=== PATIENT | male | born 1955 | race Caucasian/White ===

== ENCOUNTER → 2020-03-29 10:18 | Outpatient (BNVA) | payer MEDICAID, SELFPAY | PROVIDERS: PCP Emergency Medicine; Referring Provider Emergency Medicine; Visit Provider Internal Medicine Endocrinology, Diabetes & Metabolism | DX: E11.21 Type 2 diabetes mellitus with diabetic nephropathy (principal); Z79.4 Long term (current) use of insulin; I10 Essential (primary) hypertension; E78.5 Hyperlipidemia, unspecified; E66.9 Obesity, unspecified | CPT/HCPCS: 99212 ==

== ENCOUNTER → 2020-05-01 12:43 | Outpatient (BNV) | payer MEDICAID, MEDICARE, OTHER, SELFPAY | PROVIDERS: PCP Emergency Medicine; Referring Provider Emergency Medicine; Visit Provider Internal Medicine Medical Oncology | DX: D69.6 Thrombocytopenia, unspecified (principal) | CPT/HCPCS: 99212; 99213; 99214 ==

== ENCOUNTER 2020-05-28 11:59 | Outpatient (REF) | payer MEDICAID, SELFPAY ==
--- NOTE | 2020-05-28 | MR_ITS ---
EXAMINATION: MR LUMBAR SPINE WITHOUT CONTRAST CLINICAL INFORMATION: Lumbago with sciatica. Right-sided paresthesia of skin. COMPARISON: None TECHNIQUE: MRI of the lumbar spine was obtained using routine sequences without contrast. FINDINGS: The lumbar vertebral bodies maintain normal heights. There is minimal retrolisthesis of L4 on L5. No moderate or severe disc height loss is seen. The distal spinal cord appears normal. The conus medullaris terminates normally at the L1 level. There is a subcentimeter right-sided T2 hyperintense renal cysts. SPINAL LEVELS: L1-L2: No posterior disc abnormality. No spinal canal or neural foraminal stenosis. L2-L3: No posterior disc abnormality. No spinal canal or neural foraminal stenosis. L3-L4: Minimal disc bulging causing encroachment on the right neural foramen. No spinal canal stenosis. L4-L5: Disc bulging with mild to moderate facet arthropathy. Mild flattening of the ventral thecal sac. Right foraminal protrusion contacts the exiting right L4 nerve root. Left neural foramen is mildly narrowed. L5-S1: Mild disc bulging. Severe facet arthropathy. Periarticular edema is seen about the right more than left facet. No significant narrowing of the spinal canal or neural foramina. MR/MR lumbar spine wo con IMPRESSION: No significant narrowing of the spinal canal. At L4-L5 there is right foraminal protrusion seen contacting the exiting right L4 nerve root. At L5-S1 there is severe facet arthropathy and periarticular edema about the right more than left facet.
== END 2020-05-28 12:00 | disposition home or self-care (01) ==
LOC: HO.MRI 11:59
PROVIDERS: Visit Provider Nurse Practitioner Family
DX: M54.41 Lumbago with sciatica, right side (principal); R20.2 Paresthesia of skin; R32 Unspecified urinary incontinence
CPT/HCPCS: 72148

== ENCOUNTER → 2020-06-25 13:40 | Outpatient (BNVA) | payer MEDICAID, SELFPAY | PROVIDERS: PCP Nurse Practitioner Primary Care; Visit Provider Physician Assistant | DX: S83.241D Other tear of medial meniscus, current injury, right knee, subsequent encounter (principal) | CPT/HCPCS: 99212 ==

== ENCOUNTER → 2020-09-26 11:57 | Outpatient (BNVA) | payer MEDICAID, SELFPAY | PROVIDERS: PCP Nurse Practitioner Primary Care; Visit Provider Internal Medicine Endocrinology, Diabetes & Metabolism | DX: E11.21 Type 2 diabetes mellitus with diabetic nephropathy (principal); Z79.4 Long term (current) use of insulin; I10 Essential (primary) hypertension; E78.5 Hyperlipidemia, unspecified; E66.3 Overweight | CPT/HCPCS: 82947; 99212 ==

== ENCOUNTER 2020-09-26 12:21 | Outpatient (REF) | payer MEDICAID, SELFPAY ==
[2020-09-26 13:20] LABS: Alanine Aminotransferase 16 U/L (0-40); Albumin Level 4.2 g/dL (3.5-5.0); Alkaline Phosphatase 56 U/L (39-117); Anion Gap 12 (12-20); Aspartate Amino Transferase 28 U/L (5-37); Bilirubin Total 1.1 mg/dL (0.0-1.0); Blood Urea Nitrogen 11 mg/dL (9-16); Calcium 9.6 mg/dL (8.4-10.2); Carbon Dioxide 26 mmol/L (22-29); Chloride 102 mmol/L (96-108); Cholesterol 143 mg/dL; Estimated Glomerular Filt Rate > 60; Glucose Random 98 mg/dL (60-115); HDL Cholesterol 53 mg/dL; LDL Cholesterol Calculated 77 mg/dl; Potassium 4.3 mmol/L (3.3-5.1); Sodium 136 mmol/L (135-145); Total Protein 7.9 g/dL (6.5-8.0); Triglycerides 66 mg/dL
[2020-09-26 13:24] LABS: Creatinine Urine 53.74 mg/dL; Microalbum/Creatinine Ratio Ur 11.1 ug/mg cr
[2020-09-26 13:31] LABS: Free T4 (Free Thyroxine) 0.89 ng/dL (0.71-1.85); Thyroid Stimulating Hormone 0.51 uIU/mL (0.32-4.0)
[2020-09-26 13:41] LABS: Vitamin B12 443 pg/mL (200-900)
[2020-09-27 08:22] LABS: LDL Cholesterol Direct 73 mg/dL (<100)
== END 2020-09-26 12:22 | disposition home or self-care (01) ==
LOC: HO.10HDL 12:21
PROVIDERS: Visit Provider Internal Medicine Endocrinology, Diabetes & Metabolism
DX: E11.9 Type 2 diabetes mellitus without complications (principal)
CPT/HCPCS: 36415; 80053; 80061; 82043; 82607; 83721; 84439; 84443

== ENCOUNTER → 2020-10-09 12:43 | Outpatient (BNVA) | payer MEDICAID, SELFPAY | PROVIDERS: PCP Emergency Medicine; Visit Provider Physician Assistant | DX: Z01.818 Encounter for other preprocedural examination (principal); S83.241A Other tear of medial meniscus, current injury, right knee, initial encounter | CPT/HCPCS: 99212 ==

== ENCOUNTER 2020-10-18 05:59 | Day surgery (SDC) | payer MEDICAID, SELFPAY ==
--- NOTE | 2020-10-17 09:23 | P.CONAN_ITS ---
Documented by User: Renetta Robleroney 10/17/20 09:25 HPI - Anesthesia Eval Consult details Narrative: 64yo M for Knee Arthroscopy,right Rescheduled from 06/2020 PCP cleared Heme cleared if plt>50K (122K on 06/08/20), PMFSH Active Problems Active Problems: All Active Problems (Updated 09/26/20 @ 12:23 by Fernanda Gibbons MD) Overweight (BMI 25.0-29.9) (Acute) Tear of medial meniscus of right knee (Acute) Thrombocytopenia (Acute) Obesity (BMI 30-39.9) (Acute) Dyslipidemia (Acute) Hypertension (Acute) Diabetic nephropathy associated with type 2 diabetes mellitus (Acute) correction (current) use of insulin (Acute) Diabetes type 2, controlled (Acute) Past Medical History Medical History Alcoholic cirrhosis Diabetes type 2, controlled Diabetic nephropathy associated with type 2 diabetes mellitus Dyslipidemia GERD (gastroesophageal reflux disease) Hx of thrombocytopenia 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 Surgical History Surgical History Hx of colonoscopy Hx of eye surgery Hx of knee surgery Hx of lithotripsy Hx of shoulder surgery Social History Social History Alcohol intake: never Patient Tobacco Use Status: Never used Tobacco Use of substances other than those prescribed or required for medical reasons: Yes Substance Use Type: Marijuana Are you DNR?: No Advance Directives: No Advance Directives Information Provided: Yes Meds Allergies Allergy/AdvReac Type Severity Reaction Status Date / Time No Known Allergies Allergy Verified 10/18/20 06:28 Home Medications Medication Instructions Recorded Confirmed Last Taken Type aspirin 81 mg tablet,delayed 81 mg PO DAILY 03/29/20 09/26/20 10/16/20 History release hydrochlorothiazide 12.5 mg capsule 12.5 mg PO DAILY 03/29/20 09/26/20 Unknown History nadolol 20 mg tablet 40 mg PO DAILY 03/29/20 09/26/20 Unknown History omeprazole 20 mg capsule,delayed 20 mg PO DAILY 03/29/20 09/26/20 Unknown History release Exam Exam Date and Time: October 17, [id number] Narrative Narrative: Laboratory Tests 06/08/20 06/08/20 14:37 14:37 WBC 5.3 Hgb 14.3 Hct 42.5 Plt Count 122 L Sodium 134 L Potassium 4.1 Chloride 97 Carbon Dioxide 30 H BUN 9 Creatinine 0.66 Narrative Narrative: EKG 06/22/20 at PCP SB @ 50 Assessment and Plan Assessment Anesthesia Assessment: Chart Reviewed Documented by User: Hao Reeves MD 10/18/20 07:59 PMFSH Past Medical History Medical History Alcoholic cirrhosis Diabetes type 2, controlled Diabetic nephropathy associated with type 2 diabetes mellitus Dyslipidemia GERD (gastroesophageal reflux disease) Hx of thrombocytopenia 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 Surgical History Surgical History Hx of colonoscopy Hx of eye surgery Hx of knee surgery Hx of lithotripsy Hx of shoulder surgery Social History Social History Alcohol intake: never Patient Tobacco Use Status: Never used Tobacco Use of substances other than those prescribed or required for medical reasons: Yes Substance Use Type: Marijuana Are you DNR?: No Advance Directives: No Advance Directives Information Provided: Yes Meds Allergies Allergy/AdvReac Type Severity Reaction Status Date / Time No Known Allergies Allergy Verified 10/18/20 06:28 Home Medications Medication Instructions Recorded Confirmed Last Taken Type aspirin 81 mg tablet,delayed 81 mg PO DAILY 03/29/20 09/26/20 10/16/20 History release hydrochlorothiazide 12.5 mg capsule 12.5 mg PO DAILY 03/29/20 09/26/20 Unknown History nadolol 20 mg tablet 40 mg PO DAILY 03/29/20 09/26/20 Unknown History omeprazole 20 mg capsule,delayed 20 mg PO DAILY 03/29/20 09/26/20 Unknown History release Exam Airway Mallampati Class: II TM Dist: >3cm Neck ROM: Full Denture: Upper Loose/Missing/Broken Teeth: Yes Assessment and Plan Assessment Anesthesia Assessment: Anesthesia Plan Discussed and Chart Reviewed Final Anesthetic Review NPO: Yes ASA Class: III Final Preanesthetic Review: No Changes in Pt Med Stat, Meds/Allgs Chart Reviewed, Consent Obtained/Reviewed and Anes Risks/Benef Reviewed Patient Risk: Intermediate Procedure Risk: Low Anesthetic Plan Anesthetic Plan: MAC: Disposition: Standard PACU
[2020-10-18] VITALS (7 sets, daily range): BP systolic 135–182; BP diastolic 66–84; PULSE 49–58; RESP 16–20; TEMP 36.4–36.6; O2SAT 98–100; BMI 29.0
[2020-10-18 06:20] LABS: Glucose, Whole Blood 143 mg/dL (60-115)
[2020-10-18 06:22] LABS: PLT CLUMP 1; Red Cell Distribution Width 13.3 % (11.0-16.0)
[2020-10-18 06:24] LABS: Hematocrit 44.2 % (42-52); Mean Corpuscular HGB Conc 33.9 g/dl (31.0-36.0); Mean Corpuscular Hemoglobin 30.7 pg (27.0-33.0); Mean Corpuscular Volume 90.4 fL (80-98); Mean Platelet Volume 10.4 fL (9.4-12.4); Platelet Count 98 X10*3/uL (160-400); Red Blood Count 4.89 X10*6/uL (4.60-5.80); White Blood Count 5.8 X10*3/uL (4.8-10.8)
--- NOTE | 2020-10-18 07:26 | PC.NURSE ---
Dr. Reeves notified of platelet result of 98. No new orders.
[2020-10-18] MEDS: Lactated Ringers 1,000 ML 100 ML IVCONT (07:30)
--- NOTE | 2020-10-18 07:39 | MHC.SHP ---
Pre-Procedural Eval Section A The patient is an INPATIENT: No Changes since office visit: No Cold of Flu in the past 2 weeks, No New Medical Problems, No Changes in Medication and No Patient answered all questions The History & Physical has been completed within 30 days and I have reviewed it.: Yes Section B Chief Complaint: tear of medial meniscus Allergies: Allergies Allergy/AdvReac Type Severity Reaction Status Date / Time No Known Allergies Allergy Verified 10/18/20 06:28 Plan I have reviewed the history and physical and performed a pertinent physical examination on my patient. No changes have occurred unless specified.
[2020-10-18] MEDS: oxyCODONE HCl Immed Release 5 MG TABLET 10 MG PO (09:07)
--- NOTE | 2020-10-19 12:43 | W.PM.OPN ---
Operative Note Operative Note Date of Service: 10/18/20 Narrative: ARTHROSCOPIC SURGERY NOTE SURGEON: Dr Rafy Varela) [employer] PUBLIC HEALTH NURSE: None PREOP DIAGNOSIS: Medial meniscal tear right knee POSTOP DIAGNOSIS: Same OPERATIVE PROCEDURE: Partial medial meniscectomy right knee CLINICAL NOTE: This gentleman had ongoing problems with pain discomfort involving his right knee. Investigations were consistent with a medial meniscal tear therefore after explaining the risks benefits alternatives and answering all his questions it was mutually agreed upon to carry following procedure MOTION: Full range of motion STABILITY: Cruciate and collateral ligaments intact OPERATIVE DETAILS PREPARATION: GA, STANDARD TECHNIQUE, tourniquet E to 300 mm of mercury for a room 17 minutes SURGICAL TIME-OUT: Patient identified; procedure confirmed; site confirmed. Medical and allergy history reviewed. No preoperative antibiotics. No DVT prophylaxis. All other items discussed and agreed upon. INCISIONS: Superolateral, inferolateral, inferomedial stab incisions SYNOVIUM: Normal SYNOVIAL FLUID: Clear MEDIAL COMPARTMENT: Complex tear posterior horn medial meniscus. This was resected using a combination of handheld cutters and power shaver to stable meniscus. The tibial and femoral articular surfaces were intact INTERCONDYLAR NOTCH: ACL visualized palpated intact. PCL palpated and intact LATERAL COMPARTMENT: Lateral meniscus, tibial and femoral articular surfaces, and popliteus tendon all stable and intact ANTERIOR COMPARTMENT: Medial and lateral gutters clear. Suprapatellar pouch clear. Patella and femoral sulcus articular surfaces intact CLOSURE: 30 cc of 0.25% Marcaine with epinephrine injected in the knee. Steri-Strips and sterile dressing then applied. RECOMMENDATIONS: 1)Restore motion strength 2)Resume activities as tolerated 3)Discharge today with prescription for analgesic 4)Follow up in the office in 10-14 days
== END 2020-10-18 10:04 | disposition home or self-care (01) ==
PROVIDERS: Nurse Practitioner; PCP Emergency Medicine; Visit Provider Orthopaedic Surgery
PROC: (CPT 29870; principal; 2020-10-18 07:30)
DX: M23.221 Derangement of posterior horn of medial meniscus due to old tear or injury, right knee (principal); E11.21 Type 2 diabetes mellitus with diabetic nephropathy; I10 Essential (primary) hypertension; K70.30 Alcoholic cirrhosis of liver without ascites; K21.9 Gastro-esophageal reflux disease without esophagitis; F32.9 Major depressive disorder, single episode, unspecified; F12.90 Cannabis use, unspecified, uncomplicated; Z79.4 Long term (current) use of insulin; Z79.899 Other long term (current) drug therapy
CPT/HCPCS: 29881; 36415; 82947; 85027; J0171; J2250; J2405; J3010

== ENCOUNTER → 2020-10-31 09:18 | Outpatient (BNVA) | payer MEDICAID, SELFPAY | PROVIDERS: PCP Emergency Medicine; Visit Provider Physician Assistant | DX: S83.241D Other tear of medial meniscus, current injury, right knee, subsequent encounter (principal) | CPT/HCPCS: 99212 ==

== ENCOUNTER → 2020-12-05 10:35 | Outpatient (BNVA) | payer MEDICAID, SELFPAY | PROVIDERS: Visit Provider Orthopaedic Surgery ==

== ENCOUNTER 2020-12-05 11:27 | Outpatient (REF) | payer MEDICAID, SELFPAY ==
--- NOTE | ~2020-12-05 | US_ITS ---
EXAMINATION: US VENOUS ULTRASOUND WITH DOPPLER LOWER EXTREMITY, RIGHT CLINICAL INFORMATION: Pain right lower leg COMPARISON: None TECHNIQUE: Ultrasound of the deep veins is performed from the hip to the calf with compression sonography and color and pulse Doppler assessment. Spectral analysis with color-flow imaging is performed. FINDINGS: There is normal venous compression and respiratory variation and augmented flow. The visualized common femoral vein, superficial femoral vein, profunda femoral vein, popliteal vein, and the trifurcation region shows no evidence of deep venous thrombosis. There is no significant popliteal fossa cyst. There is benign right inguinal groin lymph node measuring 1.4 x 2.4 x 0.9 cm If the patient's symptoms persist, followup ultrasound in 5 days 7 days might be of value to exclude proximal propagation from a non-visualized calf vein. US/US venous duplex LE RT IMPRESSION: No DVT demonstrated in the right lower extremity.
== END 2020-12-05 11:28 | disposition home or self-care (01) ==
LOC: HO.US 11:27
PROVIDERS: PCP Nurse Practitioner Primary Care; Visit Provider Orthopaedic Surgery
DX: M79.661 Pain in right lower leg (principal)
CPT/HCPCS: 93971; 99212

== ENCOUNTER → 2021-03-27 12:25 | Outpatient (BNVA) | payer MEDICAID, SELFPAY | PROVIDERS: PCP Emergency Medicine; Visit Provider Nurse Practitioner Gerontology | DX: E11.9 Type 2 diabetes mellitus without complications (principal); E78.5 Hyperlipidemia, unspecified; E66.3 Overweight; I10 Essential (primary) hypertension; Z79.4 Long term (current) use of insulin | CPT/HCPCS: 82947; 83036; 99212 ==

== ENCOUNTER → 2021-08-08 11:54 | Outpatient (BNVA) | payer MEDICAID, SELFPAY | PROVIDERS: PCP Emergency Medicine; Referring Provider Nurse Practitioner Primary Care; Visit Provider Nurse Practitioner | DX: K59.04 Chronic idiopathic constipation (principal); D12.6 Benign neoplasm of colon, unspecified | CPT/HCPCS: 99202 ==

== ENCOUNTER → 2021-09-20 10:44 | Outpatient (BNVA) | payer MEDICAID, SELFPAY | PROVIDERS: Visit Provider Nurse Practitioner | DX: K59.04 Chronic idiopathic constipation (principal); D12.6 Benign neoplasm of colon, unspecified | CPT/HCPCS: 99212 ==

== ENCOUNTER → 2021-09-30 12:20 | Outpatient (BNVA) | payer MEDICAID, SELFPAY | PROVIDERS: Visit Provider Nurse Practitioner Gerontology | DX: E11.9 Type 2 diabetes mellitus without complications (principal); E78.5 Hyperlipidemia, unspecified; E66.3 Overweight; I10 Essential (primary) hypertension; Z79.4 Long term (current) use of insulin; Z68.32 Body mass index [BMI] 32.0-32.9, adult | CPT/HCPCS: 82947; 83036; 99212 ==

== ENCOUNTER → 2021-10-04 10:28 | Outpatient (BNVA) | payer MEDICAID, SELFPAY | PROVIDERS: Visit Provider Nurse Practitioner | DX: K59.04 Chronic idiopathic constipation (principal); D12.6 Benign neoplasm of colon, unspecified; R14.0 Abdominal distension (gaseous) | CPT/HCPCS: 99212 ==

== ENCOUNTER → 2021-10-31 15:34 | Outpatient (BNVA) | payer MEDICAID, SELFPAY | PROVIDERS: Visit Provider Nurse Practitioner | DX: Z12.11 Encounter for screening for malignant neoplasm of colon (principal); K59.04 Chronic idiopathic constipation; D12.6 Benign neoplasm of colon, unspecified | CPT/HCPCS: 99212 ==

== ENCOUNTER 2022-04-16 06:21 | Outpatient (REF) | payer MEDICAID, SELFPAY ==
--- NOTE | ~2022-04-16 | XR_ITS ---
EXAMINATION: XR HAND, RIGHT CLINICAL INFORMATION: Pain in right hand COMPARISON: None TECHNIQUE: PA, lateral, and oblique views of the right hand. FINDINGS: There is loss of PIP and DIP joint space. No bony erosive changes, periarticular spurring or loose bodies. No acute fracture or dislocation seen. The soft tissues are normal. XR/XR hand RT min 3V IMPRESSION: Mild degenerative changes PIP and DIP joints. No visible acute fracture or dislocation seen.
== END 2022-04-16 06:22 | disposition home or self-care (01) ==
LOC: HO.HOSX 06:21
PROVIDERS: Visit Provider Physician Assistant
DX: M65.341 Trigger finger, right ring finger (principal)
CPT/HCPCS: 20550; 73130; 99202; J1100

== ENCOUNTER → 2022-06-18 10:49 | Outpatient (BNVA) | payer MEDICAID, SELFPAY | PROVIDERS: Visit Provider Physician Assistant | DX: M65.341 Trigger finger, right ring finger (principal) | CPT/HCPCS: 99212 ==

== ENCOUNTER 2022-12-01 13:07 | Outpatient (AMB) | payer MEDICAID, SELFPAY ==
--- NOTE | 2022-12-01 13:26 | MHC.OFFVIS ---
Intake Intake Visit Reasons: Erictile dysfunction Intake Note: Patient is present for initial visit erectile dysfunction Urology Medications: none Blood Thinner: none Diabetic: yes [employer] Rep Required: Yes [employer] Rep Name: Nasreen Accompanied by: Self / Same As Patient Allergies No Known Allergies Allergy (Verified 12/01/22 14:29) Medication List - Last Reconciled 12/01/22 by Jessica Duarte RIFLE CASE REPAIRER- blood-glucose meter (FreeStyle [place] Lite kit) As directed once a sday empagliflozin (Jardiance) 25 mg PO DAILY 30 days hydrochlorothiazide 25 mg PO DAILY ibuprofen 600 mg PO QID PRN insulin glargine (Lantus Solostar U-100 Insulin) 10 units (0.1 mL) subcut QPM 90 days lisinopril 10 mg PO DAILY 30 days metformin 1,000 mg PO BIDWMEAL nadolol 40 mg PO DAILY omeprazole 20 mg PO DAILY rosuvastatin 20 mg PO DAILY 30 days HPI HPI Comments History of Present Illness Details Shukri is a very pleasant 66-year-old [place]raltarian-speaking male patient of Dr. Moody. He has a past medical history of alcoholic cirrhosis, anxiety, depression, diabetes type 2, dyslipidemia, GERD, history of alcohol abuse, hypertension, and overweight. He presents to the office today as a new patient for ongoing urinary issues and concerns. In discussion with the patient today he reports for quite some time now he has had intermittent episodes of dysuria and lower abdominal/bladder pressure. When asked he reports these episodes to be very infrequent. He otherwise denies urinary incontinence, nocturia, hematuria, foul smelling urine, changes to urinary stream, flank pain, fever, and or chills. He does however report urinary frequency and urgency at times however relates this to his diabetes. When asked he reports to be happy with his current voiding parameters. He reports also following up with Gastroenterology for issues with fecal incontinence. He discusses having upcoming appointment for upper and lower endoscopy/colonoscopy. In office urinalysis results reviewed with the patient today. LORENZO offered however declined/deferred. Discussed at length diabetes/uncontrolled diabetes in relation to urinary symptoms as well as overall health and well-being. [facility] Medical History Abdominal bloating Alcoholic cirrhosis Anxiety and depression Diabetes type 2, controlled Dyslipidemia GERD (gastroesophageal reflux disease) History of alcohol abuse Hx of thrombocytopenia Hypertension assisted (current) use of insulin Nonalcoholic fatty liver disease Overweight (BMI 25.0-29.9) Primary insomnia Surgical History History of esophagogastroduodenoscopy (EGD) Hx of colonoscopy Hx of eye surgery Hx of knee surgery Hx of lithotripsy Hx of shoulder surgery Family History Father Diabetes Mother No problems noted. Social History Household Members: None Housing: Apartment Are you a primary attending ambulatory care to a significant other at home: No Do you presently have visiting nurse or other home services: No Alcohol intake: current Alcohol intake frequency: holidays/special occasions only Patient Tobacco Use Status: Never used Tobacco Substance Use Type: Marijuana service: No Current occupational status: retired Current occupation: [employer] Hand[employer] Review of Systems Const Reports as per HPI Eyes Reports no additional complaints ENT Reports no additional complaints Card Reports as per HPI Resp Reports no additional complaints GI Reports as per HPI Reports as per HPI Musc Reports no additional complaints Neuro Reports no additional complaints Psych Reports as per HPI Endo Reports as per HPI Domo/Lymph Reports no additional complaints Aller/Immun Reports no additional complaints Physical Exam Const General: cooperative, healthy appearing, comfortable, no acute distress, well developed, alert and awake Orientation/consciousness: patient oriented x3 Limitations: no limitations HEENT Head: Yes normal to inspection, Yes normocephalic and Yes atraumatic Ears: hearing grossly normal bilaterally Eyes General: appearance normal, both eyes and all related structures Neck Neck: Yes normal visual inspection and Yes trachea midline Chest Chest palpation & inspection: normal inspection of the chest Resp Effort & Inspection: normal respiratory effort and able to speak in complete sentences Cardio Rate: regular rate GI Inspection: Yes normal to inspection General: Yes no CVA tenderness Back/Spine/Pelvis Back: no CVA tenderness Skin General skin exam: no rashes or lesions noted Neuro General: patient oriented x3 Extrem General: Yes normal to inspection Psych Appearance: grossly normal and well kempt Mental Status: mental status grossly normal Speech and movement: Normal speech and movement present and Clear speech present Affect: normal affect Attitude: cooperative Thought process: Normal thought process present Thought content: Normal thought content present Insight: Fair insight present (Psych) Judgement: Fair judgement present (Psych) Results AMB Urinalysis, Automated UA Leukoctes 0 Renetta/uL Last Edit by Promise Dillard on 12/01/22 13:46 UA Nitrite Negative Last Edit by Promise Dillard on 12/01/22 13:46 UA Urobilinogen 0.2 mg/dL Last Edit by Promise Dillard on 12/01/22 13:46 UA Protein 0 mg/dL Last Edit by [employer] Dillard on 12/01/22 13:46 UA pH 6.0 Last Edit by [employer] on 12/01/22 13:46 UA Blood 0 Compa/uL Last Edit by [employer] on 12/01/22 13:46 UA Specific [place] 1.010 Last Edit by [employer] Dillard on 12/01/22 13:46 UA Ketone Negative Last Edit by [employer] on 12/01/22 13:46 UA Bilirubin 0 mg/dL Last Edit by [employer] on 12/01/22 13:46 UA Glucose 1000 mg/dL Last Edit by [employer] on 12/01/22 13:46 Results Reviewed Results Reviewed: Laboratory Last Values Urine pH (Auto) 6.0 12/01/22 13:45 Specific [place] (Auto) 1.010 12/01/22 13:45 Urine Protein (Auto) 0 mg/dL 12/01/22 13:45 Glucose (UA)(Auto) 1000 mg/dL 12/01/22 13:45 Urine Ketones (Auto) Negative 12/01/22 13:45 Urine Blood (Auto) 0 Compa/uL 12/01/22 13:45 Urine Nitrite (Auto) Negative 12/01/22 13:45 Urine Bilirubin (Auto) 0 mg/dL 12/01/22 13:45 Urine Urobilinogen (Auto) 0.2 mg/dL 12/01/22 13:45 Leukocyte Esterase (Auto) 0 Rneetta/uL 12/01/22 13:45 Assessment & Plan Assessment & Plan (1) Lower urinary tract symptoms (LUTS): Code(s): R39.9 - Unspecified symptoms and signs involving the genitourinary system Plan In office urinalysis results reviewed with the patient today. Discussed at length diabetes in relation to urinary symptoms as well as affects of diabetes on overall health and well-being. LORENZO offered however deferred. Will obtain PSA for further assessment evaluation. Will obtain retroperitoneal ultrasound for further assessment evaluation. Patient reports lower urinary tract symptoms to be very infrequent he denies any issues with erectile dysfunction. Patient reports to be happy with current voiding parameters. Discussed possible near future in office cystoscopy if symptoms arise. Follow-up in 6-8 weeks with imaging and lab to be completed prior; or sooner with any issues, concerns, and or questions Orders: Orders Prostate Specific Antigen Today N40.0 - Benign prostatic hyperplasia without lower urinary tract symptoms US retroperitoneal comp Today R39.9 - Unspecified symptoms and signs involving the genitourinary system AMB Urinalysis Automated Today Z13.9 - Encounter for screening, unspecified Patient Instructions: The patient had an opportunity to ask questions regarding the treatment plan. All questions were answered. Physical exam, labs, and imaging were discussed and reviewed in detail. As well as risks, benefits, and discussion of treatment choices. No major barriers to understanding were identified. The patient expressed understanding and agreement with the above treatment plan. The patient was made aware they should contact our office by phone for worsening of their current condition, the appearance of new symptoms, or with any questions or concerns. Compliance is encouraged with any medications and follow up testing that is ordered. It is a privilege to be allowed the opportunity to participate in? your urological care.? Again, if you have any questions or concerns If you have any questions or concerns please do not hesitate to contact me. The office is [phone]. This note is constructed using voice recognition software. While every effort has been made to ensure accuracy physicist solid earth errors may have been included. Yours sincerely, HODAN Light Coding Level of Care Code New Pt Level 3 (27713) Diagnoses Lower urinary tract symptoms (LUTS) R39.9
== END 2022-12-01 14:18 | disposition home or self-care (01) ==
PROVIDERS: Visit Provider Nurse Practitioner Family
DX: R39.9 Unspecified symptoms and signs involving the genitourinary system (principal)
CPT/HCPCS: 99203

== ENCOUNTER → 2022-12-01 13:07 | Outpatient (BNVA) | payer MEDICARE, MEDICAID, SELFPAY | PROVIDERS: Visit Provider Nurse Practitioner Family | DX: N40.1 Benign prostatic hyperplasia with lower urinary tract symptoms (principal); N13.8 Other obstructive and reflux uropathy; R39.9 Unspecified symptoms and signs involving the genitourinary system; N52.1 Erectile dysfunction due to diseases classified elsewhere; E11.69 Type 2 diabetes mellitus with other specified complication; Z79.4 Long term (current) use of insulin | CPT/HCPCS: 99203 ==

== ENCOUNTER 2022-12-10 08:40 | Outpatient (REF) | payer MEDICARE, MEDICAID, SELFPAY ==
[2022-12-10 08:50] LABS: MANUAL DIFF FLAG NO
[2022-12-10 08:58] LABS: Basophils Percent Auto 0.5 % (0-2); Neutrophils Percent Auto 59.2 % (45-73); PLT CLUMP 1; SCAN SMEAR FLAG 1
[2022-12-10 09:00] LABS: Eosinophils Absolute Auto 0.1 X10*3/uL (0.0-0.4); Eosinophils Percent Auto 1.3 % (0-4); Hematocrit 42.1 % (42.0-52.0); Hemoglobin 13.6 g/dl (14.0-18.0); Imm Gran Abs Auto 0.01 X10*3/uL (0.00-0.03); Imm Gran Pct Auto 0.3 % (0.0-0.4); Lymphocytes Absolute Auto 0.9 X10*3/uL (1.2-4.9); Lymphocytes Percent Auto 23.8 % (20-40); Mean Corpuscular HGB Conc 32.3 g/dl (31.0-36.0); Mean Corpuscular Hemoglobin 25.5 pg (27.0-33.0); Mean Platelet Volume 10.3 fL (9.4-12.4); Monocytes Absolute Auto 0.6 X10*3/uL (0.1-1.2); Monocytes Percent Auto 14.9 % (2-11); Neutrophils Absolute Auto 2.3 x10*3/uL (2.0-8.3); Red Blood Count 5.33 X10*6/uL (4.60-5.80)
[2022-12-10 09:01] LABS: Platelet Count 107 X10*3/uL (160-400); White Blood Count 3.9 X10*3/uL (4.8-10.8)
[2022-12-10 09:29] LABS: Alanine Aminotransferase 30 U/L (0-40); Albumin Level 3.9 g/dL (3.5-5.0); Alkaline Phosphatase 63 U/L (39-117); Anion Gap 12 (12-20); Aspartate Amino Transferase 30 U/L (5-37); Bilirubin Total 0.8 mg/dL (0.0-1.0); Blood Urea Nitrogen 12 mg/dL (9-16); Calcium 9.8 mg/dL (8.4-10.2); Carbon Dioxide 26 mmol/L (22-29); Chloride 103 mmol/L (96-108); Estimated Glomerular Filt Rate > 60; Glucose Random 178 mg/dL (60-115); Potassium 4.2 mmol/L (3.3-5.1); Sodium 137 mmol/L (135-145); Total Protein 8.1 g/dL (6.5-8.0)
[2022-12-10 09:44] LABS: Prostate Specific Antigen 1.05 ng/mL (<0.05-4.0)
== END 2022-12-10 08:41 | disposition home or self-care (01) ==
LOC: HO.LAB 08:40
PROVIDERS: Internal Medicine Medical Oncology; PCP Nurse Practitioner Primary Care; Visit Provider Nurse Practitioner Family
DX: Z12.5 Encounter for screening for malignant neoplasm of prostate (principal); N40.0 Benign prostatic hyperplasia without lower urinary tract symptoms; D69.6 Thrombocytopenia, unspecified
CPT/HCPCS: 36415; 80053; 84153; 85025

== ENCOUNTER 2023-01-05 08:50 | Outpatient (REF) | payer MEDICARE, MEDICAID, SELFPAY ==
--- NOTE | ~2023-01-05 | US_ITS ---
EXAMINATION: US RETROPERITONEAL COMPLETE (RENAL) CLINICAL INFORMATION: Unspecified symptoms and signs involving the genitourinary system. COMPARISON: Renal ultrasound 06/14/2019. X-ray abdomen KUB 05/11/2019. CT abdomen and pelvis 03/08/2019. Ultrasound abdomen 02/17/2018. TECHNIQUE: Real-time imaging of the kidneys and bladder. FINDINGS: RIGHT KIDNEY: 13.0 x 6.7 x 5.6 cm (SAG x AP x TRV). The kidney is normal in size, contour, and echogenicity. Renal cortical thickness is normal. No calculi or focal parenchymal lesions. No hydronephrosis. There is increased echogenicity of the medullary pyramids. Question minimal dilatation of the renal calyces without beti hydronephrosis. LEFT KIDNEY: 14.2 x 6.9 x 6.4 cm (SAG x AP x TRV). The kidney is normal in size, contour, and echogenicity. Renal cortical thickness is normal. No calculi or focal parenchymal lesions. No hydronephrosis. There is increased echogenicity of the medullary pyramids. Question minimal dilatation of the renal calyces without beti hydronephrosis. BLADDER: Well distended and normal. Bilateral ureteral jets are demonstrated. Prevoid bladder volume is 365.5 mL. Postvoid bladder volume is 17.8 mL. Prostate volume 35.7 mL. US/US retroperitoneal comp IMPRESSION: 1. Increased echogenicity of the medullary pyramids bilaterally, consistent with medullary nephrocalcinosis. 2. Question minimal dilatation of the renal calyces without beti hydronephrosis. 3. Small post void residual. 4. Enlarged prostate.
== END 2023-01-05 08:51 | disposition home or self-care (01) ==
LOC: HO.US 08:50
PROVIDERS: PCP Nurse Practitioner Primary Care; Visit Provider Nurse Practitioner Family
DX: R39.9 Unspecified symptoms and signs involving the genitourinary system (principal)
CPT/HCPCS: 76770

== ENCOUNTER 2023-07-03 08:54 | Outpatient (REF) | payer MEDICARE, MEDICAID, SELFPAY ==
[2023-07-03 12:06] LABS: Creatinine Urine 90.06 mg/dL; Microalbumin Urine < 5.0 mg/L
[2023-07-03 12:08] LABS: Alanine Aminotransferase 27 U/L (0-40); Alkaline Phosphatase 63 U/L (39-117); Anion Gap 13 (12-20); Aspartate Amino Transferase 28 U/L (5-37); Bilirubin Total 0.9 mg/dL (0.0-1.0); Blood Urea Nitrogen 14 mg/dL (9-16); Calcium 9.4 mg/dL (8.4-10.2); Carbon Dioxide 27 mmol/L (22-29); Chloride 100 mmol/L (96-108); Cholesterol 148 mg/dL (<200); Estimated Glomerular Filt Rate > 60; Glucose Random 162 mg/dL (60-115); HDL Cholesterol 64 mg/dL (>40); LDL Cholesterol Calculated 73 mg/dL (<100); Potassium 4.2 mmol/L (3.3-5.1); Sodium 136 mmol/L (135-145); Total Protein 8.5 g/dL (6.5-8.0); Triglycerides 59 mg/dL (<150)
[2023-07-03 12:30] LABS: Vitamin B12 958 pg/mL (200-900)
== END 2023-07-03 08:55 | disposition home or self-care (01) ==
LOC: HO.HHCL 08:54
PROVIDERS: Visit Provider Nurse Practitioner Primary Care
DX: E11.65 Type 2 diabetes mellitus with hyperglycemia (principal); E11.69 Type 2 diabetes mellitus with other specified complication; E78.5 Hyperlipidemia, unspecified; Z79.4 Long term (current) use of insulin
CPT/HCPCS: 36415; 80053; 80061; 82043; 82570; 82607

== ENCOUNTER 2024-12-26 08:34 | Outpatient (REF) | payer OTHER, SELFPAY ==
--- OUTSIDE RECORDS SUMMARY | 2024-12-26 08:56 | XMS_ITS | Clinical Summary ---
Author Organization [address] [facility] Address [address] [place] [address] Phone Care Team Providers Care Cotton Expert Name Role Phone Claire Moody NP Primary Care Provider [phone] Allergies No known active allergies Medications ammonium lactate (LAC-HYDRIN) 12 % lotion Apply to soles of feet daily. At night wear socks to bed 2 Active dext 70/polycarbophi l/peg/NaCl (ARTIFICIAL TEARS SOLUTION OPHT) apply to the eye. Active chlorhexidine (PERIDEX) 0.12 % solution Use 15 mL in the mouth or throat 2 (two) times a day. Active ciclopirox (PENLAC) 8 % solution Apply topically at bedtime. Active diclofenac (VOLTAREN) 1 % topical gel Apply topically. A ctive empagliflozin (Jardiance) 25 mg tablet Take by mouth. Activ e hydroCHLOROthia zide (HYDRODIURIL) 25 mg tablet Take 1 tablet (25 mg total) by mouth 1 (one) time each day. Active insulin glargine (Lantus Solostar U-100 Insulin) 100 unit/mL (3 mL) injection pen Inject into the skin. Active lidocaine (LIDODERM) 5 % patch Place 1 Patch onto the skin every 24 hours. Apply for no more than 12 hours in any 24 hour period. Active lisinopriL (PRINIVIL,ZESTR IL) 10 mg tablet Take 1 tablet (10 mg total) by mouth 1 (one) time each day. Active loratadine (CLARITIN) 10 mg tablet Take 1 tablet (10 mg total) by mouth 1 (one) time each day. Active melatonin 10 mg tablet Take by mouth. Activ e metFORMIN (GLUMETZA) 1,000 mg 24 hr tablet Take 1,000 mg by mouth daily (with breakfast). Active nadoloL (CORGARD) 20 mg tablet Take 1 tablet (20 mg total) by mouth 1 (one) time each day. Active omeprazole (PriLOSEC) [address] capsule Take 1 capsule (40 mg total) by mouth 1 (one) time each day. Active polyethylene glycol (PEG) 17 gram/dose oral powder Polyethylene Glycol 3350 (MIRALAX OR)- Take by mouth. Active rosuvastatin (CRESTOR) 20 mg tablet Take 1 tablet (20 mg total) by mouth 1 (one) time each day. Active senna (SENOKOT) 8.6 mg tablet Take by mouth. A ctive sildenafiL (VIAGRA) 50 mg tablet Take 1 tablet (50 mg total) by mouth as needed. Active traZODone (DESYREL) 50 mg tablet Take 1 tablet (50 mg total) by mouth at bedtime. Active Active Problems Problem Noted Date Diagnosed Date Alcoholic cirrhosis of liver without ascites ([facility] V24, [facility] V28) 06/17/2022 Chronic back pain 06/17/2022 Depression with anxiety 06/17/2022 DM2 (diabetes mellitus, type 2) ([facility] V24, [facility] V28) 06/17/2022 Essential hypertension 06/17/2022 GERD without esophagitis 06/17/2022 Hyperlipidemia 06/17/2022 NAFLD (nonalcoholic fatty liver disease) 023 Numbness of both lower extremities 06/17/2022 Primary insomnia 06/17/2022 Secondary esophageal varices without bleeding ([facility] V24, [facility] V28) 06/17/2022 Urinary incontinence 06/17/2022 Encounters Date Type Department Care Team Description 12/12/2024 2:00 PM EDT Office Visit Orthopedic Surgery [facility] [address] [phone] Julio Villegas DPM Controlled type 2 diabetes with neuropathy ([facility] V24, [facility] V28) (Primary Dx); PAD (peripheral artery disease) ([facility] V24); Arthritis of both feet; Dermatophytosis, nail 10/10/2024 1:45 PM EDT Office Visit Orthopedic Surgery [facility] [address] [phone] Julio Villegas DPM Controlled type 2 diabetes with neuropathy ([facility] V24, [facility] V28) (Primary Dx); PAD (peripheral artery disease) ([facility] V24); Arthritis of both feet; Dermatophytosis, nail from Last 3 Months Social History Tobacco Use Types Packs/Day Years Used Date Smoking Tobacco: Never Assessed Sex and Gender Information Value Date Recorded Sex Assigned at Not on file Legal Sex Male 4:31 AM EST Gender Identity Not on file Sexual Orientation Not on file Last Filed Vital Signs Vital Sign Reading Time Taken Comments Blood Pressure - - Pulse - - Temperature - - Respiratory Rate - - Oxygen Saturation - - Inhaled Oxygen Concentration - - Weight 87.5 kg (193 lb) 10/10/2024 1:51 PM EDT Height 170.2 cm (5' 7.01 ) 10/10/2024 1:51 PM ED T Body Mass Index 30.22 10/10/2024 1:51 PM EDT Plan of Treatment Upcoming Encounters Date Type Department Care Team (Late st Contact Info) Description 02/13/2025 2:15 PM EDT Office Visit Orthopedic Surgery - [place] [id number] [phone] Julio Villegas DPM [address] [address] Health Maintenance Due Date Last Done Comments Diabetes: Annual GFR (Glomerular Filtration Rate) 1957 Diabetes: Annual Foot Exam 12/11/1967 Diabetes: Annual Retina Eye Exam 12/11/1967 Hepatitis A Vaccines (1 of 2 - Risk 2-dose series) 1976 Colorectal Cancer Screening: Colonoscopy 04/27/2022 Hepatitis C Screening 04/27/2022 Medicare Annual Wellness Visit 04/27/2022 Social Influencers of Health Screening 04/27/2022 Falls Risk Assessment 2022 Diabetes: Annual Urine Albumin-Creatinine Ratio (uACR) 06/28/2023 Hypertension/CHF/CAD Annual BMP Blood Test 07/09/2023 Depression Screening 05/25/2024 Diabetes: Blood Sugar Control Test (HGBA1C) 09/29/2024 04/01/2024 COVID-19 Vaccine ( season) 2024 04/19/2024, 07/01/2023, 04/08/2022, Additional history exists Influenza Vaccine (#1) 2025 , 01/30/2023, 06/24/2022, Additional history exists Cholesterol Screening (Lipid Panel) 07/03/2028 07/03/2023 DTaP,Tdap,and Td Vaccines (3 - Td or Tdap) 04/19/2032 04/19/2022, 10/13/2016 Hepatitis B Vaccines Completed 01/05/2018, 05/14/2017, 04/08/2017 Zoster Vaccines Completed 11/18/2021, 08/23, 01/05/2018 Pneumococcal Vaccine: 50+ Years Completed 10/09/2022, 04/08/2017 RSV Immunization Adult Patients Completed 06/15/2023 HIB Vaccines Aged Out No longer eligi ble based on patient's age to complete this topic HPV Vaccines Aged Out No longer eligi ble based on patient's age to complete this topic IPV Vaccines Aged Out No longer eligi ble based on patient's age to complete this topic MMR Vaccines Aged Out No longer eligi ble based on patient's age to complete this topic Meningococcal ACWY Vaccine Aged Out N o longer eligible based on patient's age to complete this topic Meningococcal B Vaccine Aged Out No l onger eligible based on patient's age to complete this topic RSV Immunization Patients Under 20 months Aged Out No longer eligible based on patient's age to complete this topic Varicella Vaccines Aged Out No longer eligible based on patient's age to complete this topic Insurance [facility] MEDICARE Member Subscriber Plan / Payer (Ef fective 2024-Present) Name:Nahum Luica Relation to Subscriber:Self Name:Nahum Lucia Payer ID:[id number] Group ID:[id number] Type:Not on file Address: [address] [place] [address] Care Teams Cotton Expert Relationship Specialty Start Date End Date Claire Moody NP [address] [place] [phone] PCP - General 04/11/22
--- OUTSIDE RECORDS SUMMARY | 2024-12-26 08:56 | XMS_ITS | Encounter Summary ---
Author Organization [employer] Address [address] [facility] [address] [place] [address] Care Team Providers Care Senior Energy Consultant Name Role Phone Claire Moody Primary Care Provider [phone] Dario Garland PharmD Unavailable [phone] Reason for Visit * Reason Comments Med Refill Encounter Details Date Type Department Care Team ([facility] Contact Info) Description 02/11/2023 Refill [facility] [address] [place], [place] [phone] Tank Castellano MD [address] [place], [place] [phone] Type 2 diabetes mellitus with hyperlipidemia ([facility]/HCC) Social History Tobacco Use Types Packs/Day Years Used Date Smoking Tobacco: Never Smokeless Tobacco: Never Alcohol Use Standard Drinks/Week Comments Not Currently 0 (1 standard drink = 0.6 oz pur e alcohol) Depression Answer Date Recorded Patient Health Questionnaire-9 Score 6 01/06/2023 Depression Answer Date Recorded Patient Health Questionnaire-2 Score 1 01/06/2023 Sex and Gender Information Value Date Recorded Sex Assigned at Male 03/24/2022 10:30 AM EDT Legal Sex Male 10:30 AM EDT Gender Identity Male 03/24/2022 10:30 AM EDT Sexual Orientation Choose not to disclose 2021 10:30 AM EDT documented as of this encounter Plan of Treatment Upcoming Encounters Date Type Department Care Team ([facility] Contact Info) Description 01/20/2025 11:00 AM EDT Medication Management [facility] [address] [place], [place] [phone] Dario Garland, PharmD [address] [place] [address] 04/11/2025 2:00 PM EST Office Visit [facility] [address] [place], [place] [phone] Hawa Cavazos, OD [address] [place] [address] documented as of this encounter Visit Diagnoses Diagnosis Type 2 diabetes mellitus with hyperlipidemia (CMS/HCC) (CMS/HCC) documented in this encounter Additional Health Concerns Assessment Noted Time PHQ-9 Depression Total Score: 6 01/07/20 23 9:53 AM EDT documented as of this encounter Care Teams Senior Energy Consultant Relationship Specialty Start Date End Date Claire Moody ANP [address] [place] [phone] PCP - General Family Medicine 05/03/20 Dario Garland, Tariq [address] [place] [address] [phone] Pharmacist Internal Medicine 01/08/24 documented as of this encounter
--- OUTSIDE RECORDS SUMMARY | 2024-12-26 08:57 | XMS_ITS | Patient Health Record ---
Author Organization [facility] Address [address] [place], [place] [phone] Care Team Providers Care Hall Supervisor Name Role Phone ZZAanshuve - DUPLICATE DO NOT USE, [facility] Primary Care Provider Unavailable Mello Whalen Unavailable [phone] Janelle Negro Unavailable Katya Chamberlain Unavailable [phone] Reason For Referral No Information Encounters Encounter Location Date Provider Diagnosis [facility] [address] [place] [address] [id number] 07/12/2024 Janelle Negro [facility] [address] [place] [address] [phone] 07/29/2024 Janelle Negro [facility] [address] [place] [address] [id number] 09/14/2024 Janelle Negro [facility] [address] [place] [address] [phone] 12/14/2024 Janelle Negro [facility] [address] [place], [place] [phone] 03/09/2024 Katya Chamberlain [facility] [address] [place] [address] [phone] 06/22/2024 Janelle Negro Plan Of Treatment No Information Insurance Providers Payer Name Payer Address Payer Phone Subscriber Number Group Number Insured Name Patient Relationship to Insured Coverage Start Date Coverage End Date [place] [employer] [address] [place] [address] [id number] Nahum Lucia Self - patient is the insured [place] [address] [place] [address] [id number] Nahum Lucia Self - patient is the insured 4
[2024-12-26 11:41] LABS: Hemoglobin A1C 196.6184 umol/L; Total Hemoglobin (HGBA1C) 3431.1991 umol/L
[2024-12-26 11:44] LABS: Hematocrit 39.8 % (42.0-52.0); Hemoglobin 12.8 g/dl (14.0-18.0); Imm Gran Abs Auto 0.01 X10*3/uL (0.00-0.03); Imm Gran Pct Auto 0.3 % (0.0-0.4); Lymphocytes Absolute Auto 0.7 X10*3/uL (1.2-4.9); MANUAL DIFF FLAG SCAN; Mean Corpuscular HGB Conc 32.2 g/dl (31.0-36.0); Mean Corpuscular Hemoglobin 25.0 pg (27.0-33.0); Mean Corpuscular Volume 77.9 fL (80.0-98.0); NRBC Abs Auto 0.000 X10*3/uL (0.0-0.012); NRBC Pct Auto 0.0 /100WBC (0.0-0.2); Red Blood Count 5.11 X10*6/uL (4.60-5.80); SCAN SMEAR FLAG 1; White Blood Count 3.5 X10*3/uL (4.8-10.8)
[2024-12-26 11:45] LABS: Platelet Count 96 X10*3/uL (160-400)
[2024-12-26 11:59] LABS: Alanine Aminotransferase 25 U/L (0-40); Albumin Level 4.0 g/dL (3.5-5.0); Alkaline Phosphatase 59 U/L (39-117); Anion Gap 13 (12-20); Aspartate Amino Transferase 34 U/L (5-37); Blood Urea Nitrogen 18 mg/dL (9-16); Calcium 9.1 mg/dL (8.4-10.2); Carbon Dioxide 24 mmol/L (22-29); Chloride 106 mmol/L (96-108); Cholesterol 132 mg/dL (<200); Estimated Glomerular Filt Rate > 60; HDL Cholesterol 52 mg/dL (>40); Potassium 3.8 mmol/L (3.3-5.1); Sodium 139 mmol/L (135-145); Total Protein 7.4 g/dL (6.5-8.0); Triglycerides 64 mg/dL (<150)
[2024-12-26 12:13] LABS: Ferritin 31 ng/mL (20-250)
== END 2024-12-26 08:35 | disposition home or self-care (01) ==
LOC: HO.HHCL 08:34
PROVIDERS: Internal Medicine Medical Oncology; PCP Nurse Practitioner Primary Care; Visit Provider Nurse Practitioner Primary Care
DX: E11.65 Type 2 diabetes mellitus with hyperglycemia (principal); D69.6 Thrombocytopenia, unspecified; Z79.4 Long term (current) use of insulin
CPT/HCPCS: 36415; 80053; 80061; 82043; 82570; 82728; 83036; 85025